=== PATIENT | male | born 1955 | race Caucasian/White ===

== ENCOUNTER → 2017-05-05 | Outpatient (CLI) | payer OTHER ==
--- NOTE | 2017-05-05 13:07 | RAD ---
Indication: Bilateral lower extremity edema. Technique: Grayscale, color Doppler and spectral waveform images of the bilateral lower extremity deep veins obtained. Comparison: None Findings: The bilateral lower extremity deep veins are compressible and evidence of blood flow with normal respiratory variation and response to augmentation. Impression: No sonographic evidence of acute DVT of the interrogated bilateral lower extremity deep veins.
== END | disposition home or self-care (01) ==
LOC: US 12:12
PROVIDERS: ATTEND Family Medicine
DX: R60.0 Localized edema (principal); Z92.21 Personal history of antineoplastic chemotherapy
CPT/HCPCS: 93970